=== PATIENT | female | born 1950 | race Caucasian/White ===

== ENCOUNTER 2021-10-18 13:06 | Emergency (ER) | payer MEDICARE ==
[2021-10-18] MEDS ORDERED: Morphine 4 MG/ML VIAL ONE (14:55)
== END 2021-10-18 15:41 | disposition home or self-care (01) ==
LOC: CSHERS 13:06
DX: M79.662 Pain in left lower leg (principal); I11.0 Hypertensive heart disease with heart failure; I50.9 Heart failure, unspecified; E11.9 Type 2 diabetes mellitus without complications; E03.9 Hypothyroidism, unspecified; M79.7 Fibromyalgia; G47.419 Narcolepsy without cataplexy; Z86.711 Personal history of pulmonary embolism; Z85.3 Personal history of malignant neoplasm of breast; Z79.82 Long term (current) use of aspirin; Z79.01 Long term (current) use of anticoagulants; Z79.899 Other long term (current) drug therapy
CPT/HCPCS: 96374; J2270

== ENCOUNTER 2022-05-17 13:14 | Outpatient (CLI) | payer OTHER ==
[~2022-05-17 13:14] MED LIST: Iopamidol 300 61% 100 ML VIAL FS ONE
== END 2022-05-17 13:15 | disposition home or self-care (01) ==
LOC: CSHCT 13:14
PROVIDERS: ATTEND Urology
DX: R31.29 Other microscopic hematuria (principal); D17.5 Benign lipomatous neoplasm of intra-abdominal organs; Z90.49 Acquired absence of other specified parts of digestive tract; K57.30 Diverticulosis of large intestine without perforation or abscess without bleeding
CPT/HCPCS: 74178; 82565; Q9967